=== PATIENT | female | born 1955 | race African-American/Black ===

== ENCOUNTER 2017-03-23 12:25 | Emergency (ER) | payer SELFPAY ==
--- NOTE | 2017-03-23 13:30 | ERNOTE ---
Medical Problem HPI - Narrative Date of Service: 03/23/17 - General Chief Complaint: General Assessment Time Seen by Provider: 03/23/17 13:15 Source: patient Exam Limitations: no limitations - Immun/Allergies/Home Medications Immunizations: IMMUNIZATION HX Immunizations Up to Date Yes Allergies/Adverse Reactions: Allergies No Known Allergies Allergy (Unverified 03/23/17 12:40) Home Medications: HOME MEDICATIONS Lisinopril/Hydrochlorothiazide [Lisinopril-Hctz 20-12.5 mg Tab] 1 each PO DAILY 03/23/17 [Last Taken Unknown] Lisinopril/Hydrochlorothiazide [Lisinopril-Hctz 20-12.5 mg Tab] 1 each PO DAILY #14 tablet 03/23/17 [Last Taken Unknown] - History of Present History Narrative: Patient presents requesting a refill of her blood pressure medication. She relates she has been treated for her HPB for some time. She takes Lisinopril/ HCTZ. She states she is here helping her sister and does not have PCP. SHe has been trying to space out her last Lisinopril/HCTZ to make it last but she feels her BP has been higher by doing this and is requesting a re-fill. No acute CP or SOB. No JACKSON. No N/T/W. She denies any other acute Sx to me. Timing: intermittent Severity: mild Modifying Factors - (Improves): Present: other - her regular meds Modifying Factors - (Worsens): Present: other - nothign Review of Systems - Review of Systems Constitutional: Absent: fever EYE: Absent: double vision Respiratory: Absent: shortness of breath Cardiology: Absent: chest pain Gastrointestinal/Abdominal: Absent: abdominal pain Neurological: Absent: weakness - Patient's Past Medical History Patient History - Medical: No pertinent hx Patient History - Cardiac/Respiratory: Hypertension, Hyperlipidemia Patient History - Cancer: No Hx of Cancer Patient History - Surgical Procedures: Patient History - Other: None - Social History Living Situations: home Psych History: No pertinent hx Alcohol Use: none Drug Use: none - Immunizations Immunizations Up to Date: Yes Physical Exam - Physical Exam General Appearance: Present: alert, no apparent distress Eye Exam: Normal inspection: bilateral, PERRL: bilateral Ears, Nose, Throat: Present: normal ENT inspection Neck: Present: normal inspection Respiratory: Present: no respiratory distress, no accessory muscle use, lungs clear Cardiovascular/Chest: Present: regular rate, rhythm, normal peripheral pulses Gastrointestinal/Abdominal: Present: normal bowel sounds, nontender, soft Back Exam: Present: normal range of motion Extremity Exam: Present: no edema Neurological Exam: Present: alert, normal mood/affect, 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 Absent: motor weakness Skin Exam: Absent: skin rash ED Progress - Vital Signs Patient's Vital Signs:: I have reviewed the patient's vital signs. Vital Signs: Vital Signs 03/23/17 12:28 Temperature 37.0 C Pulse Rate 78 Respiratory 12 Rate Blood Pressure 150/79 O2 Sat by Pulse 100 Oximetry - Progress/Reassessment Chief Complaint: General Assessment Progress Note-Subjective: 03/23/17 13:26 I offered the patient labs/imaging but she declines this and would just like a refill of her BP meds. She understands risks and benefits. Declines w/u. Clinically no Sx at this time and nothign to suggest hypertensive urgency or emergency. I discussed warning signs and reasons to return as well as the need for close f/u. Departure - Departure Clinical Impression: HTN (hypertension), Medication refill Disposition: Home self-care Condition: Stable Instructions: Hypertension, [id number] Additional Instructions: Medications as directed. Return here if you change your mind about having any of the testing discussed or if your condition worsens or changes in any way. Prescriptions: Lisinopril/Hydrochlorothiazide [Lisinopril-Hctz 20-12.5 mg Tab] 1 each PO DAILY #14 tablet
[2017-03-23 13:39] VITALS: BP 150/80
== END 2017-03-23 13:30 | disposition home or self-care (01) ==
LOC: ER 12:25
DX: I10 Essential (primary) hypertension (principal)

== ENCOUNTER 2017-04-15 06:52 | Emergency (ER) | payer SELFPAY ==
[2017-04-15 08:39] LABS: Anion Gap 10.2 mmol/L (6.8-13.8); BUN/Creatinine Ratio 37.5 (9.0-21.6); Calcium * 9.5 mg/dL (7.9-10.9); Carbon Dioxide 33.5 mmol/L (24-32.6); Estimated Creat Clear 80.7; Potassium 3.7 mmol/L (3.4-4.6)
[2017-04-15 08:46] VITALS: BP 121/76
--- NOTE | 2017-04-15 08:53 | ERNOTE ---
Medical Problem HPI - Narrative Date of Service: 04/15/17 - General Chief Complaint: General Assessment Time Seen by Provider: 04/15/17 08:00 Source: patient, other - old lab records for [facility] clinic - Immun/Allergies/Home Medications Immunizations: IMMUNIZATION HX Immunizations Up to Date Yes History of Influenza Vaccine Yes Hx Pneumococcal Vaccination Yes Allergies/Adverse Reactions: Allergies No Known Allergies Allergy (Verified 04/15/17 07:10) Home Medications: HOME MEDICATIONS Lisinopril/Hydrochlorothiazide [Lisinopril-Hctz 20-12.5 mg Tab] 1 each PO DAILY #14 tablet 03/23/17 [Last Taken Unknown] Lisinopril/Hydrochlorothiazide [Lisinopril-Hctz 20-12.5 mg Tab] 1 each PO DAILY #90 tablet 04/15/17 [Last Taken Unknown] - History of Present History Narrative: Patient here for refill of her blood pressure medications patient denies any cp , sob. - Patient's Past Medical History Patient History - Medical: No pertinent hx Patient History - Cardiac/Respiratory: Hypertension, Hyperlipidemia Patient History - Cancer: No Hx of Cancer Patient History - Surgical Procedures: Patient History - Other: None - Social History Living Situations: home Psych History: No pertinent hx Alcohol Use: none Drug Use: none - Immunizations Immunizations Up to Date: Yes Hx Pneumococcal Vaccination: Yes History of Influenza Vaccine: Yes Physical Exam - Physical Exam Narrative: Patient is in no distress. cooperative for exam General Appearance: Present: wd/wn, alert, no apparent distress Eye Exam: Normal inspection: bilateral, PERRL: bilateral, EOMI: bilateral Ears, Nose, Throat: Present: normal ENT inspection Neck: Present: normal inspection, nontender Respiratory: Present: no respiratory distress, normal breath sounds, no accessory muscle use, chest nontender, lungs clear Cardiovascular/Chest: Present: regular rate, rhythm, no murmur, normal peripheral pulses Gastrointestinal/Abdominal: Present: normal bowel sounds, nontender, nondistended, soft, no organomegaly Rectal Exam: Present: nontender, deferred Back Exam: Present: normal inspection, normal range of motion, no CVA tenderness , no vertebral tenderness Extremity Exam: Present: normal inspection, non-tender, normal range of motion, no edema Neurological Exam: Present: alert, oriented, normal mood/affect, no motor/ sensory deficits Skin Exam: Present: normal color, warm/dry Pelvic Exam: Present: deferred ED Progress - Results and Orders Patient's Lab Results:: I have reviewed the patient's lab results. Results and Orders: Laboratory Tests 04/15/17 08:25 Sodium 142 Plasma Sodium 142 Potassium 3.7 Chloride 102 Carbon Dioxide 33.5 H Anion Gap 10.2 BUN 24 H Creatinine 0.64 Est GFR (Non-Af Amer) 122 BUN/Creatinine Ratio 37.5 H Random Glucose 89 Calcium 9.5 counselled patient to drink more water From patient prior records reviewed ; patient has hyperlipidemia: total chol 231 / LDL 132 / HDL 84 / TRIGLY BORDERLINE. EKG was completed for further evaluation of hypertension and cardiovascular risk factors. - Vital Signs Patient's Vital Signs:: I have reviewed the patient's vital signs. Vital Signs: Vital Signs 04/15/17 04/15/17 06:52 07:06 Temperature 37.3 C 36.8 C Pulse Rate 84 Respiratory 16 Rate Blood Pressure 143/81 127/63 O2 Sat by Pulse 100 Oximetry - Progress/Reassessment Chief Complaint: General Assessment Plan - Plan Plan: All labs reviewed and addressed with patient refill of medication will be transmitted to [facility]. Departure - Departure Clinical Impression: Essential hypertension, Medication refill Hyperlipidemia Qualifiers: Hyperlipidemia type: unspecified Qualified Code(s): E78.5 - Hyperlipidemia, unspecified Disposition: Home self-care Instructions: Hypertension, [id number] Additional Instructions: please establish a primary care provider for further refills. Prescriptions: Lisinopril/Hydrochlorothiazide [Lisinopril-Hctz 20-12.5 mg Tab] 1 each PO DAILY #90 tablet
== END 2017-04-15 09:38 | disposition home or self-care (01) ==
LOC: ER 06:52
DX: I10 Essential (primary) hypertension (principal)